=== PATIENT | female | born 1990 | race Caucasian/White ===

== ENCOUNTER → 2020-02-15 15:00 | Oncology outpatient (ONC) | payer OTHER, SELFPAY ==
--- NOTE | 2019-10-24 11:17 | ONC.MSW ---
Description: Initial Referral Navigation Activity: Reviewed referral for acuity, medical status and immediate needs. Forwarded to scheduling for next available consult.
--- NOTE | 2019-10-26 10:32 | P.CONONC_ITS ---
History of Present Illness - Data of Consult Patient: new to practice Consult date: 10/26/19 Requesting Physician: Angela Zhao APC NP. Primary Care Provider: Angela Zhao APC NP. - Consult Narrative Reason for consult: APS Narrative: Meghana Madrigal is a 28 year old female. She has had history of 2 miscarriages: the first miscarriage was at 4.5 weeks and second miscarriage was at 6 weeks. Therefore fertility specialist ordered workup including antiphospholipid antibody testing. On 12/26/2018, lupus anticoagulant testing showed: PTT-LA screening 33 seconds (ref < or = 40), DRVVT screen 29 seconds (ref: < or = 45 seconds.). On 01/02/2019, B2 glycoprotein 1 (IgG) antibody < 9 SGU (ref: < or = 20), B2 glycoprotein 1 (IgA) antibody < 9 YADIEL (ref: < or = 20), B2 glycoprotein 1 (IgM) antibody < 9 SMU (ref: < or = 20). Phosphatidylserine antibody (IgA) < 20 units/ml (negative), Phosphatidylserine antibody (IgG) < 10 units/ml (negative), Phosphatidylserine antibody (IgM) 30 night units/ml (positive). Cardiolipin antibody (IgA) < 11 APL, Cardiolipin antibody (IgG) < 14 GPL, Cardiolipin antibody (IgM) < 12 MPL. On 03/02/2019, patient was evaluated by Dr. Cosmo Barron at [facility]. Patient was instructed to start taking aspirin 81 mg once a day. Repeat testing was ordered. On 03/10/2019, repeat testing of antiphospholipid syndrome was as follows: Lupus anticoagulant - not detected. Prothrombin time 10.7 seconds (ref: 9-12 sec). aPTT sec (ref: 22-32 seconds). DRVVT 29.5 seconds (ref: < 40.1 seconds). Factor 5 Leiden mutation not detected. Prothrombin -[id number] mutation not detected. Anticardiolipin IgA less than 10 APL (reference 0-11.9), anticardiolipin antibodies IgG less than 10 GPL (reference range 0 to 14.9), anticardiolipin antibodies IgM 24.4 MPL (reference 0-12.4). B2 glycoprotein 1 antibody IgG less than 10 SGU, B2 glycoprotein 1 antibody IgM less than 10 SMU, B2 glycoprotein 1 antibody IgA less than 10 YADIEL. Phosphatidylserine antibody IgG 4 GPS (normal, reference 0.0-10.0), phosphatidylserine antibody IgM 53 MPS (high, reference 0.0-24.0), and phosphatidylserine antibody IgA 3 APS (normal, reference 0-19). Hexagonal phospholipid negative. Patient claimed that she had a third which ended up in spontaneous . Patient said that it was only a couple of positive tests and then became negative. She is now pursuing IVF, and is being followed by a commissioned security officer Dr. Oglesby at [place] (tel [phone]). Patient was started on Levora on 10/25/2019. She is also taking low dose ASA. She is going to start stimulation in about 4-5 weeks. She has not seen Dr. Oglesby yet only telephone visit. She has no history of leg swelling. She has stabbing chest pain sometimes, maybe right side. She has no shortness of breath. She has no cough. She has joint pain of hands and fingers and stabbing pain in her legs. She has cramps of her legs. On 07/10/2019, patient's laboratory tests showed WBC 6.8, hemoglobin 12.8, hematocrit 40, MCV 96, platelets 223. 0n 10/18/2019, third repeat testing showed Anticariolipin IgM: 22 MPL, IgG < 9 GPL, B2 Glycoprotein IgM < 9 GPL, IgG < 9 GPL, IgG B2M. On 10/05/2019, patient was referred to Hematology Oncology for evaluation as yazmin sexton is currently undergoing IVF treatments and because of the diagnosis of antiphospholipid syndrome. Patient will need blood thinner injections. CC: Iman Gonzalez MD Patient reports pain?: No Home Medications and Allergies Home Medications Medication Instructions Recorded Confirmed Type Folate 10/26/19 History L-cystine g PO 10/26/19 History R-lipoic acid mg 10/26/19 History ascorbic acid (vitamin C) [Vitamin 500 mg PO DAILY 10/26/19 10/26/19 History C] aspirin 10/26/19 History cholecalciferol (vitamin D3) 25 mcg PO DAILY 10/26/19 10/26/19 History [Vitamin D3] coenzyme Q10 [CoQ-10] 100 mg PO DAILY 10/26/19 10/26/19 History levonorgestrel-ethinyl estrad 1 tab PO DAILY 10/26/19 10/26/19 History [Levora-28] [id number]-d-glucosamine 10/26/19 History Allergies Allergy/AdvReac Type Severity Reaction Status Date / Time No Known Drug Allergies Allergy Verified 10/26/19 10:43 Medical History - Medical, Surgical, Family History Medical History: Medical History (Last Updated 10/27/19 @ 23:34 by Iman Gonzalez MD) Difficult menstruation Surgical History: Surgical History (Last Updated 10/27/19 @ 23:33 by Iman Gonzalez MD) History of tonsillectomy and adenoidectomy Family History: Family History (Last Updated 10/26/19 @ 10:58 by Iman Gonzalez MD) Grandfather Stroke - Social History Smoking Status: Never smoker Substance Use Type: does not use Alcohol Intake Frequency: other (wine, stopped recently.) Review of Systems All systems PM: reviewed and no additional remarkable complaints except as stated Exam Vital signs: 10/27/19 19:24 Last Vital Signs Pulse 86 10/26/19 10:44 Resp 16 10/26/19 10:44 BP 136/80 10/26/19 10:44 Pulse Ox 100 10/26/19 10:44 Narrative: ECOG 1 Vitals above reviewed Constitutional: well developed, and well nourished, and well groomed, not in any acute respiratory distress, pleasant and cooperative. HEENT: NCAT, EOMI, PERRLA. Anicteric sclera. Neck: Supple and symmetrical, no palpable masses. No palpable thyromegaly. Respiratory: No use of accessory muscles. CTAB, no wheezes. Cardiovascular: RRR, S1 and S2 normal, no M/G/R. No edema of lower extremities. Abdomen: Soft, NTND, no palpable masses. No palpable hepatosplenomegaly. No hernia. Lymphatic: no palpable palpable lymph nodes in the neck, or axillae Musculoskeletal: normal gait and station Skin: No rashes, lesions, or ulcers. No induration, or subcutaneous nodules. Neurological: CN II-XII grossly intact. No focal motor or sensory deficit. Psychiatric: Normal judgment and insight. AOx3. Normal memory (recent and remote). Normal mood and affect. Results - Labs None Assessment and Plan (1) APS (antiphospholipid syndrome) Overview: 28-year-old female with repeated early spontaneous abortions was found to have positive antiphospholipid antibodies. Patient was referred here for consideration of anticoagulation during her IVF Assessment: I talked with the patient that I will contact the patient's commissioned security officer and discuss about the anticoagulation during the . But first of all I would like to repeat the antiphospholipid syndrome test before initiating the treatment. Plan: Lupus Anticoagulant Antiphospholipid antibody CBC, CMP RTC in 2 weeks.
[2019-10-26 10:44] VITALS: BP 136/80; PULSE 86; RESP 16; O2SAT 100
[2019-10-31 15:07] LABS: Add Manual Diff / Slide Review NO; Basophils Absolute Auto 0 /uL (0-100); Basophils Percent Auto 0.6 % (0-2); Eosinophils Absolute Auto 100 /uL (0-450); Eosinophils Percent Auto 1.9 % (2-4); Lymphocytes Absolute Auto 2700 /uL (1100-4500); Lymphocytes Percent Auto 35.1 % (25-40); Mean Corpuscular HGB Conc 34.2 % (30-36); Mean Corpuscular Hemoglobin 31.5 PG (26-34); Mean Corpuscular Volume 92.2 fL (80-100); Monocytes Absolute Auto 400 /uL (0-900); Monocytes Percent Auto 5.5 % (3-14); Neutrophils Absolute Auto 4400 /uL (1500-7000); Neutrophils Percent Auto 56.9 % (50-75); Platelet Count 237 X10^3/uL (150-400); Red Blood Cell Count 4.12 X10^6/uL (4.0-5.2); Red Cell Distribution Width 13.5 % (11.6-14.8); White Blood Cell Count 7.7 X10^3/uL (4.5-11.0)
[2019-10-31 15:20] LABS: Alanine Aminotransferase 21 IU/L (<35); Albumin 4.8 g/dL (3.5-5.0); Albumin Globulin Ratio 1.5 (1.0-2.8); Alkaline Phosphatase 36 U/L (38-126); Aspartate Aminotransferase 26 IU/L (14-36); BUN Creatinine Ratio 14.9 (6-22); Bilirubin Total 0.3 mg/dL (0.2-1.3); Blood Urea Nitrogen 11 mg/dL (7-17); Calcium 10.1 mg/dL (8.4-10.2); Carbon Dioxide 27 mmol/L (22-32); Chloride 103 mmol/L (98-107); Estimated Glomerular Filt Rate > 60.0 mL/min (>60); Globulin 3.3 g/dL (1.7-4.1); Glucose 101 mg/dL (70-100); HEMOLYSIS < 15 (0-50); Potassium 3.9 mmol/L (3.4-5.1); Sodium 138 mmol/L (137-145); Total Protein 8.1 g/dL (6.3-8.2)
[2019-10-31 15:27] LABS: Erythrocyte Sedimentation Rate 8 MM/HR (0-20)
[2019-11-01 23:35] LABS: Dilute Russell Viper Venom 34.7 sec (0.0-47.0); Lupus Reflex Interpretation Comment: (.); PTT-LA 31.4 sec (0.0-51.9)
[2019-11-20 16:19] VITALS: BP 142/91; PULSE 85; RESP 16; TEMP 37.4; O2SAT 100
--- NOTE | 2019-11-20 16:31 | ONC.PN ---
PN -Subjective Interval history: ID/CC: 28 year old with questionable APS and now is pursuing IVF. HPI : Meghana Madrigal is a 28 year old female. She has had history of 2 miscarriages: the first miscarriage was at 4.5 weeks and second miscarriage was at 6 weeks. Patient claimed that she had a third which ended up in spontaneous . Patient said that it was only a couple of positive tests and then became negative. She is pursuing IVF, and is being followed by a infection prevention coordinator Dr. Oglesby at [place] (tel [phone]). Patient was started on Levora on 10/25/2019. She is also taking low dose ASA. She has no history of leg swelling. She has stabbing chest pain sometimes, maybe right side. She has no shortness of breath. She has no cough. She has joint pain of hands and fingers and stabbing pain in her legs. She has cramps of her legs. Her fertility specialist ordered workup including antiphospholipid antibody testing. On 12/26/2018: PTT-LA screening 33 seconds (ref < or = 40) DRVVT screen 29 seconds (ref: < or = 45 seconds.). On 01/02/2019: B2 glycoprotein 1 (IgG) antibody < 9 SGU (ref: < or = 20) B2 glycoprotein 1 (IgA) antibody < 9 YADIEL (ref: < or = 20) B2 glycoprotein 1 (IgM) antibody < 9 SMU (ref: < or = 20) Phosphatidylserine antibody (IgA) < 20 units/ml (negative) Phosphatidylserine antibody (IgG) < 10 units/ml (negative) Phosphatidylserine antibody (IgM) 30 night units/ml (positive). Cardiolipin antibody (IgA) < 11 APL Cardiolipin antibody (IgG) < 14 GPL Cardiolipin antibody (IgM) < 12 MPL. On 03/02/2019, patient was evaluated by Dr. Cosmo Barron at [facility]. Patient was instructed to start taking aspirin 81 mg once a day. Repeat testing was done. On 03/10/2019 Lupus anticoagulant - not detected Prothrombin time 10.7 seconds (ref: 9-12 sec) aPTT 27.4 sec (ref: 22-32 seconds). DRVVT 29.5 seconds (ref: < 40.1 seconds). Factor 5 Leiden mutation not detected. Prothrombin -[id number] mutation not detected. Anticardiolipin IgA < 10 APL (reference 0-11.9) Anticardiolipin IgG < 10 GPL (reference range 0 to 14.9) Anticardiolipin antibodies IgM 24.4 MPL (reference 0-12.4). B2 glycoprotein 1 antibody IgG < 10 SGU B2 glycoprotein 1 antibody IgM < 10 SMU B2 glycoprotein 1 antibody IgA < 10 YADIEL Phosphatidylserine antibody IgG 4 GPS (normal, reference 0.0-10.0) phosphatidylserine antibody IgM 53 MPS (high, reference 0.0-24.0) phosphatidylserine antibody IgA 3 APS (normal, reference 0-19) Hexagonal phospholipid negative. 0n 10/18/2019 Anticariolipin IgM: 22 MPL, Anticariolipin IgG < 9 GPL B2 Glycoprotein IgM < 9 GPL B2 Glycoprotein IgG < 9 GPL B2 Glycoprotein IgG B2M. Interval History: Shamika presents here today for follow-up on the most recent tests. Clinically patient has no new signs or symptoms. She is about to start stimulation for IVF tonight. Oval retrieval is planned in about 2 weeks. She denies any shortness of breath or chest pain. She denies any abdominal pain, diarrhea or constipation. She denies any lower extremity swelling or pain. - Patient Self-Reported Symptoms SR Constitution: Fatigue/Malaise SR ears, nose, mouth, throat issues: Ears ringing SR Cardiovascular issues: Dizzy/lightheaded SR Musculoskeletal issues: Muscle pain or cramps, Cold hands or feet SR Neuro issues: Headache, Lightheaded/dizzy SR Hematologic issues: Bleeding/bruising - Additional ROS All systems PM: reviewed and no additional remarkable complaints except as stated Home Medications and Allergies Home Medications Medication Instructions Recorded Confirmed Type Folate 10/26/19 History L-cystine g PO 10/26/19 History R-lipoic acid mg 10/26/19 History ascorbic acid (vitamin C) [Vitamin 500 mg PO DAILY 10/26/19 10/26/19 History C] aspirin 10/26/19 History cholecalciferol (vitamin D3) 25 mcg PO DAILY 10/26/19 10/26/19 History [Vitamin D3] coenzyme Q10 [CoQ-10] 100 mg PO DAILY 10/26/19 10/26/19 History levonorgestrel-ethinyl estrad 1 tab PO DAILY 10/26/19 10/26/19 History [Levora-28] h-ceehoz-mwmvy-d-glucosamine 10/26/19 History enoxaparin [Lovenox] 40 mg SUBCUT Q24H #28 ml 11/20/19 Rx enoxaparin [Lovenox] 40 mg SUBCUT Q24H 2 Days #2 ml 11/20/19 Rx Allergies Allergy/AdvReac Type Severity Reaction Status Date / Time No Known Drug Allergies Allergy Verified 10/26/19 10:43 Exam Vital signs: Last Vital Signs Temp 99.4 F 11/20/19 16:19 Pulse 85 11/20/19 16:19 Resp 16 11/20/19 16:19 BP 142/91 H 11/20/19 16:19 Pulse Ox 100 11/20/19 16:19 Narrative: ECOG 1 Vitals above reviewed Constitutional: well developed, and well nourished, and well groomed, not in any acute respiratory distress, pleasant and cooperative. HEENT: NCAT, EOMI, PERRLA. Anicteric sclera. Neck: Supple and symmetrical, no palpable masses. No palpable thyromegaly. Respiratory: No use of accessory muscles. CTAB, no wheezes. Cardiovascular: RRR, S1 and S2 normal, no M/G/R. No edema of lower extremities. Abdomen: Soft, NTND, no palpable masses. No palpable hepatosplenomegaly. No hernia. Lymphatic: no palpable palpable lymph nodes in the neck, or axillae Musculoskeletal: normal gait and station Skin: No rashes, lesions, or ulcers. No induration, or subcutaneous nodules. Neurological: CN II-XII grossly intact. No focal motor or sensory deficit. Psychiatric: Normal judgment and insight. AOx3. Normal memory (recent and remote). Normal mood and affect. Results - Labs Laboratory Last Values WBC 7.7 X10^3/uL (4.5-11.0) 10/31/19 14:45 RBC 4.12 X10^6/uL (4.0-5.2) 10/31/19 14:45 Hgb 13.0 g/dL (12.0-16.0) 10/31/19 14:45 Hct 38.0 % (36-46) 10/31/19 14:45 MCV 92.2 fL (80-100) 10/31/19 14:45 MCH 31.5 PG (26-34) 10/31/19 14:45 MCHC 34.2 % (30-36) 10/31/19 14:45 RDW 13.5 % (11.6-14.8) 10/31/19 14:45 Plt Count 237 X10^3/uL (150-400) 10/31/19 14:45 Neut % (Auto) 56.9 % (50-75) 10/31/19 14:45 Lymph % (Auto) 35.1 % (25-40) 10/31/19 14:45 Callaway % (Auto) 5.5 % (3-14) 10/31/19 14:45 Eos % (Auto) 1.9 % (2-4) L 10/31/19 14:45 Baso % (Auto) 0.6 % (0-2) 10/31/19 14:45 Neut # (Auto) 4400 /uL (5804-8852) 10/31/19 14:45 Lymph # (Auto) 2700 /uL (1325-0616) 10/31/19 14:45 Callaway # (Auto) 400 /uL (0-900) 10/31/19 14:45 Eos # (Auto) 100 /uL (0-450) 10/31/19 14:45 Baso # (Auto) 0 /uL (0-100) 10/31/19 14:45 ESR 8 MM/HR (0-20) 10/31/19 14:45 PTT Normal Plasma Post Cancelled 11/01/19 16:21 Lupus Anticoag PTT Mix Cancelled 11/01/19 16:21 LA PTT Baseline 31.4 sec (0.0-51.9) 10/31/19 14:45 Lupus aPPT Interpret Cancelled 11/01/19 16:21 dRVV Screen Cancelled 11/01/19 16:21 LA dRVVT Confirm Cancelled 11/01/19 16:21 dRVVT Mix Cancelled 11/01/19 16:21 Hexagonal Phospholipid Cancelled 11/01/19 16:21 LA-APTT/Phospholip Delta Cancelled 11/01/19 16:21 Sodium 138 mmol/L (137-145) 10/31/19 14:45 Potassium 3.9 mmol/L (3.4-5.1) 10/31/19 14:45 Chloride 103 mmol/L (98-107) 10/31/19 14:45 Carbon Dioxide 27 mmol/L (22-32) 10/31/19 14:45 BUN 11 mg/dL (7-17) 10/31/19 14:45 Creatinine 0.74 mg/dL (0.52-1.04) 10/31/19 14:45 Estimated GFR > 60.0 mL/min (>60) 10/31/19 14:45 BUN/Creatinine Ratio 14.9 (6-22) 10/31/19 14:45 Glucose 101 mg/dL (70-100) H 10/31/19 14:45 Calcium 10.1 mg/dL (8.4-10.2) 10/31/19 14:45 Total Bilirubin 0.3 mg/dL (0.2-1.3) 10/31/19 14:45 AST 26 IU/L (14-36) 10/31/19 14:45 ALT 21 IU/L (<35) 10/31/19 14:45 Alkaline Phosphatase 36 U/L (38-126) L 10/31/19 14:45 Total Protein 8.1 g/dL (6.3-8.2) 10/31/19 14:45 Albumin 4.8 g/dL (3.5-5.0) 10/31/19 14:45 Globulin 3.3 g/dL (1.7-4.1) 10/31/19 14:45 Albumin/Globulin Ratio 1.5 (1.0-2.8) 10/31/19 14:45 Beta-2 GPI IgM Ab Cancelled 11/01/19 16:21 Beta-2-GPI IgG Ab Cancelled 11/01/19 16:21 Beta-2-GPI IgA Ab Cancelled 11/01/19 16:21 Anti-Cardiolipin IgG Ab Cancelled 11/01/19 16:21 Anti-Cardiolipin IgA Ab Cancelled 11/01/19 16:21 Anti-Cardiolipin IgM Ab Cancelled 11/01/19 16:21 Assessment and Plan (1) APS (antiphospholipid syndrome) Overview: 28-year-old female with repeated early spontaneous abortions was found to have positive antiphospholipid antibodies. Patient was referred here for consideration of anticoagulation during her IVF. Patient is about to start oval stimulation tonight and with planned oval retrieval in about 2 weeks. She presents here today for follow-up of the most recent laboratory test results and for discussion of initiation of anticoagulation because of the positive antiphospholipid antibody test results in the past. Assessment: During her previous visit, I have ordered lupus anticoagulant as well as antiphospholipid antibody test. Baseline partial thromboplastin time was normal. dRVVT baseline was normal. Unfortunately, none of the ordered anti phospholipid antibody tests were performed at this point. I explained to the patient that probably the lab canceled the tests because of normal lupus anticoagulant screening. I tried to get in touch with infection prevention coordinator Dr. Oglesby at [place] (tel [phone]). But was not able to get through and I left message requesting Dr. Oglesby call me back. However, according to patient, Shamika now is being followed by another lift operator at the same reproductive clinic. And she does not have any other phone number. I tried to explain to Zachary that if it is possible to delay the stimulation. She said, it is not feasible because of the arrangement in the clinic as well as the reproductive endocrinology clinic. Then I called [facility] and discussed this case with turn supervisor Dr. Jude Wilkinson MD, MS. We reviewed patient's medical history especially the 2 spontaneous early miscarriagies and 1 questionable early miscarriage. We also went through the lupus anticoagulants and antiphospholipid antibody testing results. Her anticardiolipin antibody tests were positive x 2 (03/10/2019, 10/18/2019), and her antiphosphotydylserine antibody test were positive x 2 ( 12/26/2018, 03/10/2019). Dr. Wilkinson pointed out that the patient has 2 positive anticardiolipin antibody with 12 weeks apart thus, supporting strongly the diagnosis of antiphospholipid syndrome. She recommended that patient be evaluated at the [facility] given the complicated situation. Dr. Dixon said that she is going to talk with scheduler conveyor about setting up a urgent [facility] consult visit. The patient gave Dr. Dixon her cell phone number for further communication ( ). Meanwhile, Dr. Wilkinson recommended that patient take baby aspirin and initiate the anticoagulation with prophylactic Lovenox 40 mg once a day tonight, better before the start of her ovarian stimulation. I prescribed Lovenox 40 mg once a day subcutaneously and electronically submitted the request to [facility] [place]. I tried to call the pharmacy but was not able to talk with any pharmacist or any staff over there. To be certain, I gave patient a paper prescription of Lovenox 40 mg once a day x 28 days for her to personally drop off and pick up driver the medication at [facility] if necessary. Furthermore, I gave patient a prescription of Lovenox 40 mg once a day subcutaneously for 2 doses for her to pick up driver tonight at any pharmacy and pay herself and get reimbursed later. Hopefully, she can get prescription filled at [facility] soon. Plan: visit with Dr. Minh MD ASA 81 mg daily Lovenox 40 mg subQ daily RTC in one month for follow up visit.
--- NOTE | 2019-11-22 11:40 | PC.NURSE ---
Pt called explaining that [facility] pharmacy was unable to fill RX for Lovenox for a couple of days. Pt requesting 3 day dose to be called into [facility] in [place] so she can continue medication w/o interruption. In future pt will continue having [facility] pharmacy continue filling RX because it's more affordable for her. This RN called 3 day supply of Lovenox to [facility] per Dr. Gonzalez's order. Pt aware.
--- NOTE | 2019-11-22 14:16 | ONC.SCHED ---
Per patient: Dr. Wilkinson is not taking new patients. She has been scheduled for 11/[address] Dumont.
--- NOTE | 2019-12-21 16:44 | ONC.SCHED ---
left voice mail for patient to call and reschedule/no show for 12/21/19
[2020-02-15 15:33] VITALS: BP 132/78; PULSE 89; RESP 16; TEMP 37.2; O2SAT 100
--- NOTE | 2020-02-15 15:53 | ONC.PN ---
PN -Subjective Interval history: ID/CC: 29 year old with questionable APS and now is pursuing IVF. HPI : Meghana Madrigal is a 28 year old female. She has had history of 2 miscarriages: the first miscarriage was at 4.5 weeks and second miscarriage was at 6 weeks. Patient claimed that she had a third which ended up in spontaneous . Patient said that it was only a couple of positive tests and then became negative. She is pursuing IVF, and is being followed by a coloring room worker Dr. Oglesby at [facility] (tel [phone]). Patient was started on Levora on 10/25/2019. She is also taking low dose ASA. She has no history of leg swelling. She has stabbing chest pain sometimes, maybe right side. She has no shortness of breath. She has no cough. She has joint pain of hands and fingers and stabbing pain in her legs. She has cramps of her legs. Her fertility specialist ordered workup including antiphospholipid antibody testing. On 12/26/2018: PTT-LA screening 33 seconds (ref < or = 40) DRVVT screen 29 seconds (ref: < or = 45 seconds.). On 01/02/2019: B2 glycoprotein 1 (IgG) antibody < 9 SGU (ref: < or = 20) B2 glycoprotein 1 (IgA) antibody < 9 YADIEL (ref: < or = 20) B2 glycoprotein 1 (IgM) antibody < 9 SMU (ref: < or = 20) Phosphatidylserine antibody (IgA) < 20 units/ml (negative) Phosphatidylserine antibody (IgG) < 10 units/ml (negative) Phosphatidylserine antibody (IgM) 30 night units/ml (positive). Cardiolipin antibody (IgA) < 11 APL Cardiolipin antibody (IgG) < 14 GPL Cardiolipin antibody (IgM) < 12 MPL. On 03/02/2019, patient was evaluated by Dr. Cosmo Barron at [facility]. Patient was instructed to start taking aspirin 81 mg once a day. Repeat testing was done. On 03/10/2019 Lupus anticoagulant - not detected Prothrombin time 10.7 seconds (ref: 9-12 sec) aPTT 27.4 sec (ref: 22-32 seconds). DRVVT 29.5 seconds (ref: < 40.1 seconds). Factor 5 Leiden mutation not detected. Prothrombin -[id number] mutation not detected. Anticardiolipin IgA < 10 APL (reference 0-11.9) Anticardiolipin IgG < 10 GPL (reference range 0 to 14.9) Anticardiolipin antibodies IgM 24.4 MPL (reference 0-12.4). B2 glycoprotein 1 antibody IgG < 10 SGU B2 glycoprotein 1 antibody IgM < 10 SMU B2 glycoprotein 1 antibody IgA < 10 YADIEL Phosphatidylserine antibody IgG 4 GPS (normal, reference 0.0-10.0) phosphatidylserine antibody IgM 53 MPS (high, reference 0.0-24.0) phosphatidylserine antibody IgA 3 APS (normal, reference 0-19) Hexagonal phospholipid negative. 0n 10/18/2019 Anticariolipin IgM: 22 MPL, Anticariolipin IgG < 9 GPL B2 Glycoprotein IgM < 9 GPL B2 Glycoprotein IgG < 9 GPL B2 Glycoprotein IgG B2M. Interval History: Her most recent in vitro fertilization has failed. She is about to start new session. Clinically patient has no new signs or symptoms. After her previous visit here at [facility], she was referred to and was evaluated by Simón Ruvalcaba at [facility]. Dr. Guerra thought that the patient does not meet the above criteria for the antiphospholipid antibody syndrome. We did request laboratory reports in clinic notes from [facility] so that we have the primary data. Given the data to date, I would defer on anticoagulation management as per practice by her coloring room worker. Continuing prophylactic anticoagulation with enoxaprin during the IVF and seems like a reasonable option given patient's history of multiple losses. However, with the data we have I would not characterize her as having the antiphospholipid antibody syndrome which would typically require indefinite anticoagulation. Repeat test at showed No evidence of Lupus Inhibitor. No significant antiphospholipid antibodies. Per patient, Dr. Oglesby, her coloring room worker told he that there is no problem with lovenox injection throughout the whole IVF and . - Patient Self-Reported Symptoms SR Constitution: Fatigue/Malaise SR ears, nose, mouth, throat issues: Ears ringing SR Cardiovascular issues: Dizzy/lightheaded SR Musculoskeletal issues: Muscle pain or cramps, Cold hands or feet SR Neuro issues: Headache, Lightheaded/dizzy SR Hematologic issues: Bleeding/bruising - Additional ROS All systems PM: reviewed and no additional remarkable complaints except as stated Home Medications and Allergies Home Medications Medication Instructions Recorded Confirmed Type Folate 10/26/19 History L-cystine g PO 10/26/19 History R-lipoic acid mg 10/26/19 History ascorbic acid (vitamin C) [Vitamin 500 mg PO DAILY 10/26/19 10/26/19 History C] aspirin 10/26/19 History cholecalciferol (vitamin D3) 25 mcg PO DAILY 10/26/19 10/26/19 History [Vitamin D3] coenzyme Q10 [CoQ-10] 100 mg PO DAILY 10/26/19 10/26/19 History levonorgestrel-ethinyl estrad 1 tab PO DAILY 10/26/19 10/26/19 History [Levora-28] [id number]-[id number]-uqbqy-d-glucosamine 10/26/19 History enoxaparin [Lovenox] 40 mg SUBCUT Q24H #28 ml 11/20/19 Rx Allergies Allergy/AdvReac Type Severity Reaction Status Date / Time No Known Drug Allergies Allergy Verified 10/26/19 10:43 Exam Vital signs: Last Vital Signs Temp 99 F 02/15/20 15:33 Pulse 89 02/15/20 15:33 Resp 16 02/15/20 15:33 BP 132/78 02/15/20 15:33 Pulse Ox 100 02/15/20 15:33 Narrative: ECOG 1 Vitals above reviewed Constitutional: well developed, and well nourished, and well groomed, not in any acute respiratory distress, pleasant and cooperative. HEENT: NCAT, EOMI, PERRLA. Anicteric sclera. Respiratory: No use of accessory muscles. Musculoskeletal: normal gait and station Neurological: CN II-XII grossly intact. No focal motor or sensory deficit. Psychiatric: Normal judgment and insight. AOx3. Normal memory (recent and remote). Normal mood and affect. Results - Labs Laboratory Last Values WBC 7.7 X10^3/uL (4.5-11.0) 10/31/19 14:45 RBC 4.12 X10^6/uL (4.0-5.2) 10/31/19 14:45 Hgb 13.0 g/dL (12.0-16.0) 10/31/19 14:45 Hct 38.0 % (36-46) 10/31/19 14:45 MCV 92.2 fL (80-100) 10/31/19 14:45 MCH 31.5 PG (26-34) 10/31/19 14:45 MCHC 34.2 % (30-36) 10/31/19 14:45 RDW 13.5 % (11.6-14.8) 10/31/19 14:45 Plt Count 237 X10^3/uL (150-400) 10/31/19 14:45 Neut % (Auto) 56.9 % (50-75) 10/31/19 14:45 Lymph % (Auto) 35.1 % (25-40) 10/31/19 14:45 Yancey % (Auto) 5.5 % (3-14) 10/31/19 14:45 Eos % (Auto) 1.9 % (2-4) L 10/31/19 14:45 Baso % (Auto) 0.6 % (0-2) 10/31/19 14:45 Neut # (Auto) 4400 /uL (0399-3045) 10/31/19 14:45 Lymph # (Auto) 2700 /uL (0938-5238) 10/31/19 14:45 Yancey # (Auto) 400 /uL (0-900) 10/31/19 14:45 Eos # (Auto) 100 /uL (0-450) 10/31/19 14:45 Baso # (Auto) 0 /uL (0-100) 10/31/19 14:45 ESR 8 MM/HR (0-20) 10/31/19 14:45 PTT Normal Plasma Post Cancelled 11/01/19 16:21 Lupus Anticoag PTT Mix Cancelled 11/01/19 16:21 LA PTT Baseline 31.4 sec (0.0-51.9) 10/31/19 14:45 Lupus aPPT Interpret Cancelled 11/01/19 16:21 dRVV Screen Cancelled 11/01/19 16:21 LA dRVVT Confirm Cancelled 11/01/19 16:21 dRVVT Mix Cancelled 11/01/19 16:21 Hexagonal Phospholipid Cancelled 11/01/19 16:21 LA-APTT/Phospholip Delta Cancelled 11/01/19 16:21 Sodium 138 mmol/L (137-145) 10/31/19 14:45 Potassium 3.9 mmol/L (3.4-5.1) 10/31/19 14:45 Chloride 103 mmol/L (98-107) 10/31/19 14:45 Carbon Dioxide 27 mmol/L (22-32) 10/31/19 14:45 BUN 11 mg/dL (7-17) 10/31/19 14:45 Creatinine 0.74 mg/dL (0.52-1.04) 10/31/19 14:45 Estimated GFR > 60.0 mL/min (>60) 10/31/19 14:45 BUN/Creatinine Ratio 14.9 (6-22) 10/31/19 14:45 Glucose 101 mg/dL (70-100) H 10/31/19 14:45 Calcium 10.1 mg/dL (8.4-10.2) 10/31/19 14:45 Total Bilirubin 0.3 mg/dL (0.2-1.3) 10/31/19 14:45 AST 26 IU/L (14-36) 10/31/19 14:45 ALT 21 IU/L (<35) 10/31/19 14:45 Alkaline Phosphatase 36 U/L (38-126) L 10/31/19 14:45 Total Protein 8.1 g/dL (6.3-8.2) 10/31/19 14:45 Albumin 4.8 g/dL (3.5-5.0) 10/31/19 14:45 Globulin 3.3 g/dL (1.7-4.1) 10/31/19 14:45 Albumin/Globulin Ratio 1.5 (1.0-2.8) 10/31/19 14:45 Beta-2 GPI IgM Ab Cancelled 11/01/19 16:21 Beta-2-GPI IgG Ab Cancelled 11/01/19 16:21 Beta-2-GPI IgA Ab Cancelled 11/01/19 16:21 Anti-Cardiolipin IgG Ab Cancelled 11/01/19 16:21 Anti-Cardiolipin IgA Ab Cancelled 11/01/19 16:21 Anti-Cardiolipin IgM Ab Cancelled 11/01/19 16:21 Assessment and Plan (1) APS (antiphospholipid syndrome) Overview: 29-year-old female with repeated early spontaneous abortions was found to have questionable antiphospholipid antibodies. Patient was referred here for consideration of anticoagulation during her IVF. She is now being followed by coloring room worker Dr. Oglesby at [facility] (tel [phone]). Assessment: I explained to Meghana that based on opinion of Dr. Guerra from [facility], she most likely does not have anti phospholipid syndrome. As far as anticoagulation is concerned, Dr. Warner would defer to coloring room worker. Dr. Guerra pointed out that Continuing prophylactic anticoagulation with enoxaprin during the IVF and seems like a reasonable option given patient's history of multiple losses. I talked with the patient I will request the medical records from Dr. Oglesby. Plan: Records from [facility] in one month for follow up visit.
--- NOTE | 2020-02-22 15:43 | PC.NURSE ---
Pt called requesting to update Dr. Gonzalez; pt received okay from other provider that Lovenox is compatible with her other medications. \ Dr. Gonzalez updated and request to e-scribe medication to D.O.D placed in his box. Pt aware.
--- NOTE | 2022-04-21 13:09 | PC.NURSE ---
Addendum entered by Delores Ball R.N. 04/23/22 13:46: Dr. Gonzalez defers to Dr. Guerra at [facility] for treatment. Pt saw Dr. Guerra Dec 2019. Pt states she is 5 wks pg. She is being followed by an Construction Economist at [facility]. This RN called [facility] ([phone] and LVM for them to expedite f/u with pt. Original Note: Pt calls and needs Rx for Lovenox. I'm again and need to anticoagulation to keep my baby. Pt last seen 2019 and did not f/u in [address] Gonzalez's note. She moves to [place] in early June due to in [place]. Note left for Dr. Gonzalez about pt requesting this Rx. He defers to Dr. Guerra at . Pt states she is being monitored for the at [facility] in [place]. Pt states she will call PCP for referral to Dr. Gonzalez but still needs lovenox. I have about 10 injections left. This RN will speak with Dr. Gonzalez on .
== END ==
PROVIDERS: PCP Nurse Practitioner Family; Referring Provider Nurse Practitioner Family; Visit Provider Internal Medicine Hematology & Oncology
DX: D68.61 Antiphospholipid syndrome (principal); N97.9 Female infertility, unspecified; N96 Recurrent pregnancy loss
CPT/HCPCS: 36415; 80053; 85025; 85598; 85613; 85651; 85732; 86146; 86147; 99204; 99214